=== PATIENT | female | born 1975 | race Two or more races ===

== ENCOUNTER 2018-07-07 07:58 | Emergency (ER) | payer MEDICARE, MEDICAID ==
[~2018-07-07] VITALS: Ht 165.1 cm; Wt 73.9 kg
[~2018-07-07 07:58] MED LIST: ASPI-845 PO; CYCL-1 PO; ESCI20TA38 PO; MULT1TAB74 PO; ONDA4TAB12 PO; PANT40TA4 PO; SIMV20TA5 PO; VALA500T37 PO; VARE1TAB22 PO
[2018-07-07 08:57] LABS: PARTIAL THROMBOPLASTIN TIME 27 SECONDS (22-32); PROTHROMBIN TIME 9.9 SECONDS (9.0-12.0)
[2018-07-07 09:01] LABS: HEMOGLOBIN 14.2 g/dl (12.0-16.0); RED BLOOD COUNT 4.19 X10'6 (4.20-5.60); WHITE BLOOD COUNT 4.9 X10'3 (4.5-11.0)
[2018-07-07 09:02] LABS: HEMATOCRIT 41.1 % (35.0-45.0); MEAN CORPUSCULAR HGB CONC 34.6 % (33.0-36.5); MEAN CORPUSCULAR VOLUME 98.2 FL (78-98); NEUTROPHILS % (AUTO) 62.2 % (42-75); PLATELET COUNT 273 X10'3 (140-440); RED CELL DISTRIBUTION WIDTH 12.9 % (11.5-14.5)
[2018-07-07 09:03] LABS: ALANINE AMINOTRANSFERASE 25 U/L (12-78); ALBUMIN 3.6 G/DL (3.4-5.0); ALKALINE PHOSPHATASE 82 IU/L (46-116); ANION GAP 10 (8-16); ASPARTATE AMINO TRANSFERASE 20 U/L (10-37); BASOPHILS % (AUTO) 0.9 % (0-1); BILIRUBIN,TOTAL 0.4 MG/DL (0.1-1.0); BLOOD UREA NITROGEN 10 MG/DL (7-18); BUN/CREATININE RATIO 18.2 (6.6-38.0); CALCIUM 8.4 MG/DL (8.5-10.1); CHLORIDE 103 MMOL/L (99-107); CREATININE 0.55 MG/DL (0.40-0.90); EOSINOPHILS # (AUTO) 0.2 X10'3 (0-0.9); EOSINOPHILS % (AUTO) 3.1 % (0-6); GLUCOSE 99 MG/DL (70-104); LYMPHOCYTES # (AUTO) 1.4 X10'3 (1.1-4.8); LYMPHOCYTES % (AUTO) 27.8 % (21-51); MONOCYTES # (AUTO) 0.3 X10'3 (0-0.9); SODIUM 139 MMOL/L (135-145); TOTAL CARBON DIOXIDE 25.9 MMOL/L (24-32); TOTAL PROTEIN 7.2 G/DL (6.4-8.2); eGFR > 90 ML/MIN
[2018-07-07] MEDS ORDERED: HYDROcodone/acetaminophen 10/325mg tab PO ONE (09:30)
[2018-07-07 09:44] VITALS: BP 126/69
== END 2018-07-07 09:47 | disposition home or self-care (01) ==
LOC: ER 07:58
DX: R07.9 Chest pain, unspecified (principal); I10 Essential (primary) hypertension; E78.00 Pure hypercholesterolemia, unspecified; Z86.73 Personal history of transient ischemic attack (TIA), and cerebral infarction without residual deficits; J45.909 Unspecified asthma, uncomplicated; F17.200 Nicotine dependence, unspecified, uncomplicated; Z91.040 Latex allergy status; Z88.2 Allergy status to sulfonamides; Z88.5 Allergy status to narcotic agent; Z88.8 Allergy status to other drugs, medicaments and biological substances; Z79.82 Long term (current) use of aspirin; Z79.899 Other long term (current) drug therapy
CPT/HCPCS: 36415; 71045; 80053; 84484; 85025; 85610; 85730; 93005; 99285

== ENCOUNTER 2018-09-29 05:02 | Emergency (ER) | payer MEDICARE, MEDICAID ==
[~2018-09-29] VITALS: Ht 165.1 cm; Wt 71.4 kg
[2018-09-29 05:05] VITALS: BP 128/91
[2018-09-29] MEDS ORDERED: HYDROcodone/acetaminophen 5mg/325mg tablet PO ONE (05:45)
[2018-09-29] MEDS ORDERED: naproxen 500mg tablet PO ONE (05:45)
== END 2018-09-29 06:12 | disposition home or self-care (01) ==
LOC: ER 05:03
DX: S93.491A Sprain of other ligament of right ankle, initial encounter (principal); E78.00 Pure hypercholesterolemia, unspecified; I10 Essential (primary) hypertension; J45.909 Unspecified asthma, uncomplicated; K21.9 Gastro-esophageal reflux disease without esophagitis; Z98.890 Other specified postprocedural states; Z86.73 Personal history of transient ischemic attack (TIA), and cerebral infarction without residual deficits; Z91.040 Latex allergy status; Z88.2 Allergy status to sulfonamides; Z88.5 Allergy status to narcotic agent; Z79.82 Long term (current) use of aspirin; Z79.899 Other long term (current) drug therapy; X50.1XXA Overexertion from prolonged static or awkward postures, initial encounter; Y93.89 Activity, other specified; Y92.89 Other specified places as the place of occurrence of the external cause; Y99.9 Unspecified external cause status
CPT/HCPCS: 29515; 73610; 99283

== ENCOUNTER 2019-06-24 15:43 | Emergency (ER) | payer MEDICARE, MEDICAID ==
[~2019-06-24] VITALS: Ht 165.1 cm; Wt 70.0 kg
[2019-06-24 16:08] VITALS: BP 121/88
== END 2019-06-24 16:49 | disposition home or self-care (01) ==
LOC: ER 15:43
DX: S63.630A Sprain of interphalangeal joint of right index finger, initial encounter (principal); E78.00 Pure hypercholesterolemia, unspecified; I10 Essential (primary) hypertension; J45.909 Unspecified asthma, uncomplicated; K21.9 Gastro-esophageal reflux disease without esophagitis; Z86.73 Personal history of transient ischemic attack (TIA), and cerebral infarction without residual deficits; Z98.890 Other specified postprocedural states; Z91.040 Latex allergy status; Z88.2 Allergy status to sulfonamides; Z88.5 Allergy status to narcotic agent; Z79.82 Long term (current) use of aspirin; Z79.899 Other long term (current) drug therapy; W22.8XXA Striking against or struck by other objects, initial encounter; Y93.89 Activity, other specified; Y92.89 Other specified places as the place of occurrence of the external cause; Y99.9 Unspecified external cause status
CPT/HCPCS: 73140; 99283

== ENCOUNTER 2019-09-24 13:42 | Emergency (ER) | payer MEDICARE, MEDICAID ==
[~2019-09-24] VITALS: Ht 165.1 cm; Wt 70.0 kg
[~2019-09-24 13:42] MED LIST changes: +SIMV-42 PO; -SIMV20TA5 PO
[2019-09-24] MEDS ORDERED: ketorolac tromethamine 15mg/ml inj. IM ONE (14:00)
[2019-09-24] MEDS ORDERED: orphenadrine citrate 60mg/2ml inj. IM ONE (14:00)
--- NOTE | 2019-09-24 14:06 | NUR ---
patient in fast track room 3.
[2019-09-24 14:44] VITALS: BP 137/90
[2019-09-24] MEDS ORDERED: IBUP-1985 PO (15:07)
[2019-09-24] MEDS ORDERED: METH-360 PO ×2 (15:07→16:51)
== END 2019-09-24 15:31 | disposition home or self-care (01) ==
LOC: ER 13:44
DX: S16.1XXA Strain of muscle, fascia and tendon at neck level, initial encounter (principal); E78.00 Pure hypercholesterolemia, unspecified; I10 Essential (primary) hypertension; J45.909 Unspecified asthma, uncomplicated; K21.9 Gastro-esophageal reflux disease without esophagitis; Z86.73 Personal history of transient ischemic attack (TIA), and cerebral infarction without residual deficits; Z98.890 Other specified postprocedural states; Z91.040 Latex allergy status; Z88.2 Allergy status to sulfonamides; Z88.5 Allergy status to narcotic agent; Z79.82 Long term (current) use of aspirin; Z79.899 Other long term (current) drug therapy; V49.88XA Car occupant (driver) (passenger) injured in other specified transport accidents, initial encounter; Y93.89 Activity, other specified; Y92.413 State road as the place of occurrence of the external cause; Y99.9 Unspecified external cause status
CPT/HCPCS: 72125; 72128; 96372; 99284; J1885; J2360

== ENCOUNTER 2019-10-25 06:06 | Emergency (ER) | payer MEDICARE, MEDICAID ==
[~2019-10-25] VITALS: Ht 165.1 cm; Wt 69.0 kg
[~2019-10-25 06:06] MED LIST changes: -ESCI20TA38 PO; +ESCI20TA45 PO; +IBUP-1985 PO; +METH-360 PO
[2019-10-25] MEDS ORDERED: oxymetazoline 15 ML nasal spray NS ONE (06:55)
[2019-10-25] MEDS ORDERED: ipratropium/albuterol 3ml nebule NEB ONE (06:55)
[2019-10-25] MEDS ORDERED: LIDOcaine 40mg/ml topical solution IH ONE (06:55)
[2019-10-25 08:14] VITALS: BP 126/67
[2019-10-25] MEDS ORDERED: FLUT1DIS INH (08:50)
[2019-10-25] MEDS ORDERED: ALBU6.7H9 INH (08:51)
== END 2019-10-25 09:19 | disposition home or self-care (01) ==
LOC: ER 06:06
DX: J20.9 Acute bronchitis, unspecified (principal); E78.00 Pure hypercholesterolemia, unspecified; I10 Essential (primary) hypertension; J45.909 Unspecified asthma, uncomplicated; K21.9 Gastro-esophageal reflux disease without esophagitis; F10.99 Alcohol use, unspecified with unspecified alcohol-induced disorder; F17.210 Nicotine dependence, cigarettes, uncomplicated; Z86.73 Personal history of transient ischemic attack (TIA), and cerebral infarction without residual deficits; Z98.890 Other specified postprocedural states; Z91.040 Latex allergy status; Z88.2 Allergy status to sulfonamides; Z88.5 Allergy status to narcotic agent; Z88.8 Allergy status to other drugs, medicaments and biological substances; Z79.82 Long term (current) use of aspirin; Z79.899 Other long term (current) drug therapy; Y90.9 Presence of alcohol in blood, level not specified
CPT/HCPCS: 71045; 87502; 87503; 94640; 99284; 99406; J2001; 94760

== ENCOUNTER 2019-10-30 08:03 | Emergency (ER) | payer MEDICARE, MEDICAID ==
[~2019-10-30] VITALS: Ht 165.1 cm; Wt 68.2 kg
[~2019-10-30 08:03] MED LIST changes: +ALBU6.7H9 INH; +FLUT1DIS INH
[2019-10-30] MEDS ORDERED: AMOX-422 PO (08:45)
[2019-10-30 08:52] VITALS: BP 126/98
== END 2019-10-30 08:54 | disposition home or self-care (01) ==
LOC: ER 08:04
DX: J32.0 Chronic maxillary sinusitis (principal); R09.82 Postnasal drip; E78.00 Pure hypercholesterolemia, unspecified; I10 Essential (primary) hypertension; J45.909 Unspecified asthma, uncomplicated; K21.9 Gastro-esophageal reflux disease without esophagitis; F17.200 Nicotine dependence, unspecified, uncomplicated; Z86.73 Personal history of transient ischemic attack (TIA), and cerebral infarction without residual deficits; Z98.890 Other specified postprocedural states; Z91.040 Latex allergy status; Z88.2 Allergy status to sulfonamides; Z88.5 Allergy status to narcotic agent; Z79.82 Long term (current) use of aspirin; Z79.899 Other long term (current) drug therapy
CPT/HCPCS: 99283

== ENCOUNTER 2020-01-29 18:40 | Emergency (ER) | payer MEDICARE, MEDICAID ==
[~2020-01-29] VITALS: Ht 165.1 cm; Wt 68.2 kg
[~2020-01-29 18:40] MED LIST changes: -VALA500T37 PO; +VALA500T41 PO
[2020-01-29] MEDS ORDERED: azithromycin 250mg tablet PO ONE (20:00)
[2020-01-29] MEDS ORDERED: CefTRIAXone 250MG IM Kit w/LIDOcaine IM ONE (20:00)
[2020-01-29 20:06] LABS: CLARITY,URINE CLEAR (Clear); COLOR,URINE YELLOW (Yellow); GLUCOSE, URINE NEGATIVE (Neg); KETONES,URINE NEGATIVE (Neg); LEUKOCYTE ESTERASE ,URINE NEGATIVE (Neg); NITRITES, URINE NEGATIVE (Neg); OCCULT BLOOD,URINE NEGATIVE (Neg); PROTEIN,URINE NEGATIVE (Neg); UA COLLECTION TYPE CLN CATCH MIDSTREAM; UROBILINOGEN,URINE 0.2 E.U/dL (0.2-1.0)
[2020-01-29 20:18] VITALS: BP 138/91
[2020-01-29 20:19] LABS: URINE HCG NEGATIVE (NEG)
== END 2020-01-29 20:20 | disposition home or self-care (01) ==
LOC: ER 18:42
DX: Z11.3 Encounter for screening for infections with a predominantly sexual mode of transmission (principal); R30.9 Painful micturition, unspecified; F41.9 Anxiety disorder, unspecified; E78.00 Pure hypercholesterolemia, unspecified; I10 Essential (primary) hypertension; J45.909 Unspecified asthma, uncomplicated; K21.9 Gastro-esophageal reflux disease without esophagitis; Z86.73 Personal history of transient ischemic attack (TIA), and cerebral infarction without residual deficits; Z98.890 Other specified postprocedural states; Z72.89 Other problems related to lifestyle
CPT/HCPCS: 36415; 81003; 81025; 87491; 87591; 96372; 99283; J0696

== ENCOUNTER 2021-09-01 09:13 | Emergency (ER) | payer MEDICARE, MEDICAID ==
[~2021-09-01] VITALS: Ht 165.1 cm; Wt 72.7 kg
[~2021-09-01 09:13] MED LIST changes: +ESCI20TA39 PO; -ESCI20TA45 PO; +MULT-620 PO; -MULT1TAB74 PO; -PANT40TA4 PO; +PANT40TA54 PO
[2021-09-01 09:17] VITALS: BP 139/94
[2021-09-01] MEDS ORDERED: AZIT250T2 PO (10:19)
== END 2021-09-01 10:48 | disposition home or self-care (01) ==
LOC: ER 09:14
DX: J20.9 Acute bronchitis, unspecified (principal); R06.02 Shortness of breath; J02.9 Acute pharyngitis, unspecified; R05.9 Cough, unspecified; R09.89 Other specified symptoms and signs involving the circulatory and respiratory systems; E78.00 Pure hypercholesterolemia, unspecified; I10 Essential (primary) hypertension; J45.909 Unspecified asthma, uncomplicated; K21.9 Gastro-esophageal reflux disease without esophagitis; Z86.73 Personal history of transient ischemic attack (TIA), and cerebral infarction without residual deficits; Z72.89 Other problems related to lifestyle; Z98.890 Other specified postprocedural states; Z88.2 Allergy status to sulfonamides; Z91.040 Latex allergy status; Z88.5 Allergy status to narcotic agent; Z88.8 Allergy status to other drugs, medicaments and biological substances; Z79.82 Long term (current) use of aspirin; Z79.2 Long term (current) use of antibiotics; Z79.899 Other long term (current) drug therapy
CPT/HCPCS: 71045; 99283

== ENCOUNTER 2021-12-15 11:45 | Emergency (ER) | payer MEDICARE, MEDICAID ==
[~2021-12-15] VITALS: Ht 165.1 cm; Wt 72.7 kg
[2021-12-15 11:51] VITALS: BP 154/97
[2021-12-15] MEDS ORDERED: HYDROcodone/acetaminophen 10/325mg tab PO ONE (12:15)
[2021-12-15] MEDS ORDERED: ibuprofen 200mg tablet PO ONE (12:15)
== END 2021-12-15 13:44 | disposition home or self-care (01) ==
LOC: ER 11:46
DX: M25.532 Pain in left wrist (principal); R22.32 Localized swelling, mass and lump, left upper limb; E78.00 Pure hypercholesterolemia, unspecified; I10 Essential (primary) hypertension; J45.909 Unspecified asthma, uncomplicated; K21.9 Gastro-esophageal reflux disease without esophagitis; F17.200 Nicotine dependence, unspecified, uncomplicated; Z86.79 Personal history of other diseases of the circulatory system; Z72.89 Other problems related to lifestyle; Z88.2 Allergy status to sulfonamides; Z88.5 Allergy status to narcotic agent; Z91.040 Latex allergy status; Z79.82 Long term (current) use of aspirin; Z79.899 Other long term (current) drug therapy; Z79.2 Long term (current) use of antibiotics
CPT/HCPCS: 29125; 73080; 73110; 99284

== ENCOUNTER 2022-09-06 06:11 | Day surgery (SDC) | payer MEDICARE, MEDICAID ==
[2022-08-27 13:06] LABS: BASOPHILS # (AUTO) 0.1 X10'3 (0-0.2); BASOPHILS % (AUTO) 0.7 % (0-1); EOSINOPHILS # (AUTO) 0.1 X10'3 (0-0.9); EOSINOPHILS % (AUTO) 2.1 % (0-6); LYMPHOCYTES # (AUTO) 2.4 X10'3 (1.1-4.8); LYMPHOCYTES % (AUTO) 33.5 % (21-51); MEAN CORPUSCULAR HEMOGLOBIN 33.1 PG (27.0-31.0); MEAN CORPUSCULAR HGB CONC 34.2 g/dL (33.0-36.5); MEAN CORPUSCULAR VOLUME 96.7 FL (78-98); MEAN PLATELET VOLUME 7.1 FL (7.4-10.4); MONOCYTES # (AUTO) 0.5 X10'3 (0-0.9); MONOCYTES % (AUTO) 6.5 % (2-12); NEUTROPHILS # (AUTO) 4.1 X10'3 (1.8-7.7); NEUTROPHILS % (AUTO) 57.2 % (42-75); PRE OP HEMATOCRIT 39.1 % (35.0-45.0); PRE OP HEMOGLOBIN 13.4 g/dL (12.0-16.0); PRE OP PLATELET COUNT 252 X10'3 (140-440); RED BLOOD COUNT 4.04 X10'6 (4.20-5.60); RED CELL DISTRIBUTION WIDTH 13.5 % (11.5-14.5)
[2022-08-27 13:20] LABS: ALBUMIN 3.8 G/DL (3.4-5.0); ALBUMIN/GLOBULIN RATIO 1.1 (1.1-1.5); ALKALINE PHOSPHATASE 88 IU/L (46-116); BLOOD UREA NITROGEN 9 MG/DL (7-18); BUN/CREATININE RATIO 15.8 (6.6-38.0); CALCIUM 8.9 MG/DL (8.5-10.1); CHLORIDE 104 MMOL/L (99-107); CREATININE 0.57 MG/DL (0.40-0.90); PRE OP ALT 30 U/L (30-65); PRE OP ANION GAP 9 (8-16); PRE OP AST 24 U/L (10-37); PRE OP BILIRUB, TOTAL 0.5 MG/DL (0.0-1.0); PRE OP GLUCOSE 94 MG/DL (70-104); PRE OP POTASSIUM 3.6 MMOL/L (3.4-5.1); PRE OP SODIUM 139 MMOL/L (135-145); TOTAL CARBON DIOXIDE 25.9 MMOL/L (24-32); TOTAL PROTEIN 7.2 G/DL (6.4-8.2); eGFR > 90 ML/MIN
[~2022-09-06] VITALS: Ht 165.1 cm; Wt 84.0 kg
[2022-09-06 06:00] VITALS: BP 110/70
[~2022-09-06 06:11] MED LIST changes: -ALBU6.7H9 INH; -ASPI-845 PO; +ATOR10TA10 PO; -CYCL-1 PO; -ESCI20TA39 PO; +FERR325T29 PO; -FLUT1DIS INH; -IBUP-1985 PO; -METH-360 PO; -MULT-620 PO; -ONDA4TAB12 PO; -SIMV-42 PO; -VARE1TAB22 PO; +VENL75CA61 PO; +VITAMIN C; +ceFAZolin inj. 2,000 MG in dextrose 5%-water 100 ML IV ONE; +famotidine 20mg tablet PO ONE; +ringers solution, lacted 1,000 ML IV SCH
[2022-09-06] MEDS ORDERED: midazolam 1 mg/ML 2ml injection ONE ×2 (08:16→08:50)
[2022-09-06] MEDS ORDERED: fentaNYL/PF 50MCG/1 ML 2ML syringe ONE (08:16)
[2022-09-06] MEDS ORDERED: BUPIVAcaine 0.5% inj/PF 30 ML ONE (08:42)
[2022-09-06] MEDS ORDERED: BUPIVAcaine 0.5% inj/PF 30 ml vial IJ ONE (09:01)
[2022-09-06] MEDS ORDERED: propofol inj 20 ML IV ONE (09:05)
[2022-09-06 09:28] VITALS: BP 127/80
--- NOTE | 2022-09-06 09:28 | NUR ---
Received from OR via [facility] , accompanied by Anesthesiologist JIAN and report given by Anesthesiolgist. PATIENT WITH 20G PIV IN RIGHT UE RUNNING LR AT 100. VSS. PATIENT WITH SPLINT TO LEFT UE THUMB SPICA. CDI. BRANDON + CSM AND ARE PWD, NO DRAINAGE PRESENT. Addendum: 09/06/22 at 0943 by Skinny Wang RN, RN Amended: Links added.
[2022-09-06] MEDS ORDERED: meperidine/PF 25mg/ml syringe IV PRN ×2 (09:35)
[2022-09-06] MEDS ORDERED: ringers solution, lacted 1,000 ML IV SCH (09:35)
[2022-09-06] MEDS ORDERED: ondansetron/PF 4mg/2ml inj IV PRN (09:35)
[2022-09-06 09:40] VITALS: BP 132/88
[2022-09-06 09:50] VITALS: BP 133/93
--- NOTE | 2022-09-06 10:00 | NUR ---
ALL DISCHARGE CRITERIA HAS BEEN MET. VSS, PAIN AT A TOLERABLE LEVEL, VOIDED AND ABLE TO SAFELY AMBULATE AND TRANSFER SELF. IV TAKEN OUT WITHOUT ANY COMPLICATIONS. ALL DISCHARGE INSTRUCTIONS COVERED WITH PATIENT AND ALL QUESTIONS ANSWERED. PATIENT TAKEN OUT VIA WHEELCHAIR TO PERSONAL VEHICLE WHERE FAMILY/FRIEND DROVE PATIENT HOME. Addendum: 09/06/22 at 1010 by Skinny Wang RN, RN Amended: Links added.
--- NOTE | 2022-09-06 10:08 | NUR ---
ALL DISCHARGE CRITERIA HAS BEEN MET. VSS, PAIN AT A TOLERABLE LEVEL, VOIDED AND ABLE TO SAFELY AMBULATE AND TRANSFER SELF. IV TAKEN OUT WITHOUT ANY COMPLICATIONS. ALL DISCHARGE INSTRUCTIONS COVERED WITH PATIENT AND ALL QUESTIONS ANSWERED. PATIENT TAKEN OUT VIA WHEELCHAIR TO PERSONAL VEHICLE WHERE FAMILY/FRIEND DROVE PATIENT HOME. Addendum: 09/06/22 at 1012 by Skinny Ochoa - RADHA GARCIA Amended: Links added.
== END 2022-09-06 10:08 | disposition home or self-care (01) ==
LOC: PAS 06:11
PROVIDERS: ATTEND Orthopaedic Surgery Hand Surgery
DX: M18.12 Unilateral primary osteoarthritis of first carpometacarpal joint, left hand (principal); M87.2 Osteonecrosis due to previous trauma; Z88.5 Allergy status to narcotic agent; F17.210 Nicotine dependence, cigarettes, uncomplicated; K21.9 Gastro-esophageal reflux disease without esophagitis; Z88.2 Allergy status to sulfonamides; Z88.8 Allergy status to other drugs, medicaments and biological substances; Z91.040 Latex allergy status; Z79.899 Other long term (current) drug therapy; Z98.890 Other specified postprocedural states; Z86.73 Personal history of transient ischemic attack (TIA), and cerebral infarction without residual deficits; Z88.6 Allergy status to analgesic agent
CPT/HCPCS: 25312; 25447; 36415; 80053; 82948; 85025; 93005; J0690; J2250; J2704; J3010; J7030; J7060; J7120; S0020; Z7506; Z7512; A4215; A4618; A7000

== ENCOUNTER 2023-12-10 06:33 | Emergency (ER) | payer MEDICARE, MEDICAID ==
[~2023-12-10] VITALS: Ht 165.1 cm; Wt 69.8 kg
[~2023-12-10 06:33] MED LIST changes: -ceFAZolin inj. 2,000 MG in dextrose 5%-water 100 ML IV ONE; -famotidine 20mg tablet PO ONE; -ringers solution, lacted 1,000 ML IV SCH
[2023-12-10] MEDS ORDERED: AMOX-580 PO (06:55)
[2023-12-10 07:04] VITALS: BP 128/86; PULSE 71; RESP 16; TEMP 97.8; O2SAT 98
== END 2023-12-10 07:20 | disposition home or self-care (01) ==
LOC: ER 06:34
DX: J20.9 Acute bronchitis, unspecified (principal); E78.00 Pure hypercholesterolemia, unspecified; I10 Essential (primary) hypertension; J45.909 Unspecified asthma, uncomplicated; K21.9 Gastro-esophageal reflux disease without esophagitis; Z91.040 Latex allergy status; Z88.2 Allergy status to sulfonamides; Z88.5 Allergy status to narcotic agent; Z79.2 Long term (current) use of antibiotics; Z79.899 Other long term (current) drug therapy; Z98.890 Other specified postprocedural states
CPT/HCPCS: 99283

== ENCOUNTER 2023-12-27 07:17 | Emergency (ER) | payer MEDICARE, MEDICAID ==
[~2023-12-27] VITALS: Ht 165.1 cm; Wt 68.7 kg
[~2023-12-27 07:17] MED LIST changes: +AMOX-580 PO
[2023-12-27] MEDS: diphenhydrAMINE 50 mg/ml inj IV ONE (09:19)
[2023-12-27] MEDS: HYDROmorphone 1 mg/ml syringe IV ONE (09:19)
[2023-12-27] MEDS: normal saline 1000ML IV soln IVB ONE (09:25)
[2023-12-27 10:31] LABS: BILIRUBIN,URINE NEGATIVE (Neg); CLARITY,URINE CLEAR (Clear); COLOR,URINE YELLOW (Yellow); GLUCOSE, URINE NEGATIVE (Neg); KETONES,URINE NEGATIVE (Neg); LEUKOCYTE ESTERASE ,URINE NEGATIVE (Neg); NITRITES, URINE NEGATIVE (Neg); OCCULT BLOOD,URINE NEGATIVE (Neg); PROTEIN,URINE NEGATIVE (Neg); UROBILINOGEN,URINE 0.2 E.U/dL (0.2-1.0)
[2023-12-27 10:37] LABS: UA COLLECTION TYPE NON-SPECIFIED
[2023-12-27 10:45] LABS: URINE AMPHETAMINE SCREEN NEGATIVE (Neg); URINE BARBITUATE SCREEN NEGATIVE (Neg); URINE BENZODIAZEPINES SCREEN NEGATIVE (Neg); URINE CANNABINOID SCREEN NEGATIVE (Neg); URINE COCAINE SCREEN NEGATIVE (Neg); URINE METHADONE SCREEN NEGATIVE (Neg); URINE OPIATE SCREEN NEGATIVE (Neg); URINE PHENCYCLIDINE SCREEN NEGATIVE (Neg)
[2023-12-27 11:04] LABS: BASOPHILS # (AUTO) 0.1 X10'3 (0-0.2); BASOPHILS % (AUTO) 0.8 % (0-1); EOSINOPHILS # (AUTO) 0.1 X10'3 (0-0.9); EOSINOPHILS % (AUTO) 1.8 % (0-6); HEMATOCRIT 36.4 % (35.0-45.0); HEMOGLOBIN 12.6 g/dl (12.0-16.0); LYMPHOCYTES # (AUTO) 2.1 X10'3 (1.1-4.8); LYMPHOCYTES % (AUTO) 31.8 % (21-51); MEAN CORPUSCULAR HEMOGLOBIN 33.9 PG (27.0-31.0); MEAN CORPUSCULAR HGB CONC 34.5 g/dL (33.0-36.5); MEAN CORPUSCULAR VOLUME 98.4 FL (78-98); MEAN PLATELET VOLUME 7.2 FL (7.4-10.4); MONOCYTES # (AUTO) 0.4 X10'3 (0-0.9); MONOCYTES % (AUTO) 6.4 % (2-12); NEUTROPHILS # (AUTO) 3.9 X10'3 (1.8-7.7); NEUTROPHILS % (AUTO) 59.2 % (42-75); PLATELET COUNT 204 X10'3 (140-440); RED CELL DISTRIBUTION WIDTH 13.5 % (11.5-14.5); WHITE BLOOD COUNT 6.6 X10'3 (4.5-11.0)
[2023-12-27 11:15] LABS: ALANINE AMINOTRANSFERASE 23 U/L (12-78); ALBUMIN 2.9 G/DL (3.4-5.0); ALBUMIN/GLOBULIN RATIO 0.9 (1.1-1.5); ALKALINE PHOSPHATASE 70 IU/L (46-116); ANION GAP 5 (8-16); ASPARTATE AMINO TRANSFERASE 17 U/L (10-37); BILIRUBIN,TOTAL 0.4 MG/DL (0.1-1.0); BLOOD UREA NITROGEN 11 MG/DL (7-18); BUN/CREATININE RATIO 16.9 (10.0-20.0); CHLORIDE 109 MMOL/L (99-107); CREATININE 0.65 MG/DL (0.40-0.90); GLUCOSE 95 MG/DL (70-104); POTASSIUM 3.7 MMOL/L (3.5-5.1); SODIUM 140 MMOL/L (135-145); TOTAL CARBON DIOXIDE 25.7 MMOL/L (24-32); TOTAL PROTEIN 6.1 G/DL (6.4-8.2); eCRCL 93 ML/MIN; eGFR > 90 ML/MIN
[2023-12-27 11:58] VITALS: TEMP 97.5
[2023-12-27] MEDS ORDERED: ketorolac trometh. 30mg/ml inj. IV ONE (13:40)
[2023-12-27 13:41] VITALS: BP 112/75; PULSE 58; O2SAT 100
[2023-12-27] MEDS ORDERED: NAPR-56 PO (13:54)
[2023-12-27] MEDS: naproxen 500mg tablet PO ONE (14:06)
[2023-12-27 14:07] VITALS: RESP 16
[2023-12-27] MEDS: ketorolac tromethamine 15mg/ml inj. IV ONE (14:07)
== END 2023-12-27 14:19 | disposition home or self-care (01) ==
LOC: ER 07:18
DX: M43.10 Spondylolisthesis, site unspecified (principal); I10 Essential (primary) hypertension; E78.00 Pure hypercholesterolemia, unspecified; K21.9 Gastro-esophageal reflux disease without esophagitis; J45.909 Unspecified asthma, uncomplicated; Z86.73 Personal history of transient ischemic attack (TIA), and cerebral infarction without residual deficits; G89.29 Other chronic pain; F17.200 Nicotine dependence, unspecified, uncomplicated; Z91.040 Latex allergy status; Z88.8 Allergy status to other drugs, medicaments and biological substances; Z88.2 Allergy status to sulfonamides
CPT/HCPCS: 36415; 72148; 80053; 80305; 81003; 85025; 96361; 96374; 96375; 99285; J1170; J1200; J1885; J7030

== ENCOUNTER 2024-06-24 06:17 | Emergency (ER) | payer MEDICARE, MEDICAID ==
[~2024-06-24] VITALS: Ht 165.1 cm; Wt 71.4 kg
[~2024-06-24 06:17] MED LIST changes: -AMOX-580 PO
[2024-06-24 06:18] VITALS: TEMP 98.1
[2024-06-24 07:12] LABS: EOSINOPHILS # (AUTO) 0.2 X10'3 (0-0.9); EOSINOPHILS % (AUTO) 4.5 % (0-6); HEMATOCRIT 40.1 % (35.0-45.0); HEMOGLOBIN 13.8 g/dl (12.0-16.0); LYMPHOCYTES # (AUTO) 1.6 X10'3 (1.1-4.8); LYMPHOCYTES % (AUTO) 34.9 % (21-51); MEAN CORPUSCULAR HEMOGLOBIN 33.5 PG (27.0-31.0); MEAN CORPUSCULAR HGB CONC 34.5 g/dL (33.0-36.5); MEAN PLATELET VOLUME 7.8 FL (7.4-10.4); MONOCYTES # (AUTO) 0.3 X10'3 (0-0.9); MONOCYTES % (AUTO) 7.7 % (2-12); NEUTROPHILS # (AUTO) 2.3 X10'3 (1.8-7.7); NEUTROPHILS % (AUTO) 51.9 % (42-75); PLATELET COUNT 228 X10'3 (140-440); RED BLOOD COUNT 4.13 X10'6 (4.20-5.60); RED CELL DISTRIBUTION WIDTH 13.5 % (11.5-14.5); WHITE BLOOD COUNT 4.5 X10'3 (4.5-11.0)
[2024-06-24 07:27] LABS: ALANINE AMINOTRANSFERASE 22 U/L (12-78); ALBUMIN 3.4 G/DL (3.4-5.0); ALKALINE PHOSPHATASE 50 IU/L (46-116); ANION GAP 10 (8-16); ASPARTATE AMINO TRANSFERASE 17 U/L (10-37); BILIRUBIN,TOTAL 0.5 MG/DL (0.1-1.0); BLOOD UREA NITROGEN 8 MG/DL (7-18); BUN/CREATININE RATIO 13.8 (10.0-20.0); CALCIUM 8.8 MG/DL (8.5-10.1); CHLORIDE 107 MMOL/L (99-107); CREATININE 0.58 MG/DL (0.40-0.90); GLUCOSE 96 MG/DL (70-104); POTASSIUM 4.1 MMOL/L (3.5-5.1); SODIUM 139 MMOL/L (135-145); TOTAL CARBON DIOXIDE 21.8 MMOL/L (24-32); TOTAL PROTEIN 6.8 G/DL (6.4-8.2); eCRCL 103 ML/MIN; eGFR > 90 ML/MIN
[2024-06-24 07:38] LABS: PRO BRAIN NATRIURETIC PEPTIDE 65 PG/ML (0-125)
[2024-06-24] MEDS ORDERED: OMEP40CA21 PO (07:54)
[2024-06-24 08:04] VITALS: BP 118/81; PULSE 70; RESP 16; O2SAT 100
== END 2024-06-24 08:17 | disposition home or self-care (01) ==
LOC: ER 06:17
DX: R10.13 Epigastric pain (principal); E78.00 Pure hypercholesterolemia, unspecified; I10 Essential (primary) hypertension; J45.909 Unspecified asthma, uncomplicated; K21.9 Gastro-esophageal reflux disease without esophagitis; G89.29 Other chronic pain; M54.9 Dorsalgia, unspecified; F17.210 Nicotine dependence, cigarettes, uncomplicated; Z91.040 Latex allergy status; Z88.8 Allergy status to other drugs, medicaments and biological substances; Z91.018 Allergy to other foods; Z79.899 Other long term (current) drug therapy; Z79.2 Long term (current) use of antibiotics; Z86.73 Personal history of transient ischemic attack (TIA), and cerebral infarction without residual deficits; Z98.890 Other specified postprocedural states; Z72.89 Other problems related to lifestyle
CPT/HCPCS: 36415; 71045; 80053; 83880; 84484; 85025; 93005; 99285

== ENCOUNTER 2024-08-19 08:54 | Emergency (ER) | payer BC, MEDICAID ==
[~2024-08-19] VITALS: Ht 165.1 cm; Wt 66.3 kg
[2024-08-19 09:00] VITALS: TEMP 97.7
[2024-08-19 09:24] LABS: BILIRUBIN,URINE NEGATIVE (Neg); CLARITY,URINE CLOUDY (Clear); COLOR,URINE RED (Yellow); GLUCOSE, URINE NEGATIVE (Neg); KETONES,URINE NEGATIVE (Neg); LEUKOCYTE ESTERASE ,URINE TRACE (Neg); OCCULT BLOOD,URINE LARGE (Neg); PROTEIN,URINE 100 mg/dl (Neg); UROBILINOGEN,URINE 0.2 E.U/dL (0.2-1.0)
[2024-08-19 09:25] LABS: NITRITES, URINE NEGATIVE (Neg); UA COLLECTION TYPE VOIDED
[2024-08-19 09:32] LABS: BACTERIA,URINE FEW /HPF (Neg); MUCUS STRANDS FEW /LPF (Neg); RBC,URINE TNTC /HPF (0-2); SQUAMOUS EPITHELIAL CELL,UR FEW /LPF (FEW); TRANSITIONAL EPI CELLS,URINE FEW /HPF
[2024-08-19] MEDS ORDERED: NITR100C6 PO (09:46)
[2024-08-19 09:54] VITALS: BP 115/85; PULSE 82; RESP 16; O2SAT 100
== END 2024-08-19 09:56 | disposition home or self-care (01) ==
LOC: ER 08:54
DX: N39.0 Urinary tract infection, site not specified (principal); E78.00 Pure hypercholesterolemia, unspecified; I10 Essential (primary) hypertension; J45.909 Unspecified asthma, uncomplicated; K21.9 Gastro-esophageal reflux disease without esophagitis; G89.29 Other chronic pain; M54.9 Dorsalgia, unspecified; Z88.5 Allergy status to narcotic agent; Z88.2 Allergy status to sulfonamides; Z91.040 Latex allergy status; Z86.73 Personal history of transient ischemic attack (TIA), and cerebral infarction without residual deficits; Z98.890 Other specified postprocedural states; Z72.89 Other problems related to lifestyle; Z79.899 Other long term (current) drug therapy
CPT/HCPCS: 81001; 87077; 87088; 87186; 99283

== ENCOUNTER 2024-09-22 09:56 | Emergency (ER) | payer BC, MEDICAID ==
[~2024-09-22] VITALS: Ht 165.1 cm; Wt 68.8 kg
[~2024-09-22 09:56] MED LIST changes: +NITR100C6 PO
[2024-09-22 10:06] VITALS: BP 119/79; PULSE 80; TEMP 97.8; O2SAT 98
[2024-09-22] MEDS ORDERED: PROM118S5 PO (14:37)
[2024-09-22] MEDS ORDERED: PRED20TA PO (14:37)
[2024-09-22 14:45] VITALS: RESP 16
== END 2024-09-22 14:46 | disposition home or self-care (01) ==
LOC: ER 09:57
DX: B34.9 Viral infection, unspecified (principal); E78.00 Pure hypercholesterolemia, unspecified; I10 Essential (primary) hypertension; J45.909 Unspecified asthma, uncomplicated; K21.9 Gastro-esophageal reflux disease without esophagitis; G89.29 Other chronic pain; Z86.73 Personal history of transient ischemic attack (TIA), and cerebral infarction without residual deficits; Z88.2 Allergy status to sulfonamides; Z91.040 Latex allergy status; Z88.5 Allergy status to narcotic agent; Z88.8 Allergy status to other drugs, medicaments and biological substances; Z98.890 Other specified postprocedural states; Z20.822 Contact with and (suspected) exposure to COVID-19
CPT/HCPCS: 36415; 71045; 87502; 87503; 87811; 99284

== ENCOUNTER 2025-04-03 11:30 | Emergency (ER) | payer BC, MEDICAID ==
[~2025-04-03] VITALS: Ht 165.1 cm; Wt 61.4 kg
--- NOTE | 2025-04-03 11:44 | Physician Documentation ---
History of Present Illness ~ Stated Complaint: TOE PAIN Time Seen by MD: 11:43 Primary Medical Doctor: [facility] This 50-year-old female reports that she injured her left 5th toe yesterday by accidentally kicking something. She denies any other injuries or concerns. On exam, the toe was found to be slightly swollen with ecchymosis. Tetanus witin 5 years: Yes Medication Reconciliation Allergies: Coded Allergies: latex (Unverified Allergy, Intermediate, HIVES, 09/22/24) Sulfa (Sulfonamide Antibiotics) (Verified Allergy, Unknown, HIVES, ) morphine (Verified Allergy, Unknown, HIVES, 09/22/24) trazodone (Verified Allergy, Unknown, HIVES, 09/22/24) Scheduled Atorvastatin Calcium (Lipitor), 1 TAB PO DAILY, (Reported) Ferrous Sulfate (Ferrous Sulfate), 1 TAB PO DAILY, (Reported) Naproxen (Naproxen), 1 TAB PO Q12H Nitrofurantoin Monohyd/M-Cryst (Macrobid 100 mg Capsule), 1 CAP PO Q12H Pantoprazole Sodium (Pantoprazole Sodium), 1 TAB PO BILL, (Reported) Valacyclovir HCl (Valacyclovir), 1 TAB PO DAILY, (Reported) Venlafaxine Hcl (Venlafaxine Hcl Er), 1 CAP PO DAILY, (Reported) Miscellaneous Medications [Vitamin C], (Reported) Past Medical History Past Medical History: *CLAY ARTIST*, CVA/TIA/Stroke, High Cholesterol, Hypertension, Vascular Disease, Asthma, GERD, Chronic Back Pain Past Surgical History: brain surgery, Alcohol Use: Occasionally Drug Use: none Lives with: Family Lives In: Home Occupation: employed Review of Systems ROS As stated above in the HPI, otherwise all systems are reviewed and negative. Physical Exam Physical Exam General: Alert, no apparent distress. Neck: Full range of motion. Respiratory: Lungs clear, no respiratory distress. Chest: No accessory muscle use. Cardiovascular: Regular rate and rhythm, no murmurs. Gastrointestinal: Soft, nontender, nondistended. Bowels sounds present. Extremities: Normal range of motion, no deformity. Eccymosis left fifth toe. Neurologic: Oriented x4. Psychiatric: Normal mood and affect. Skin: Normal color, warm and dry. Progress Results/Orders Results/Orders Orders - KENNEDI WHITMORE NP Foot, Complete (3vw Min) (04/03/25 11:43) Ortho Orders (04/03/25 ) Completed Orders - KENNEDI WHITMORE NP Foot, Complete (3vw Min) (04/03/25 11:43) Vital Signs 04/03/25 04/03/25 11:37 12:59 Temp 97.8 97.8 Pulse 89 70 Resp 18 15 B/P (MAP) 155/101 145/99 Pulse Ox 97 97 EKG/XRAY/CT/US/VASC/MRI Bone/Soft Tissue X-Ray (Spine) : Additional Comment [place] [id number] DIAGNOSTIC RADIOLOGY Patient: GRACIELA GREEN Medical Record: [id number] [facility] : 1975, Age: 50 Sex: Female Location: ER Patient Status: [facility] ER Service Date/Time: 04/03/25/ 1143 Ordering Physician: KENNEDI WHITMORE NP Exam: FOOT, COMPLETE (3VW MIN) X-ray left foot Technique: AP lateral and oblique views REASON FOR EXAM: trauma, pain INDICATION: trauma, pain FINDINGS: Chip fracture off the base of proximal phalanx of the left 5th toe seen on the lateral view. IMPRESSION: 1. Chip fracture of the base of the proximal phalanx of the left 5th toe Electronically Signed by:FRANCISCO JAVIER COATES MD Date & Time: 04/03/25 1218 Dictated by: FRANCISCO JAVIER COATES MD Dictation date and time: 04/03/25 1200 Primary Care Provider: NO PRIMARY CARE PROVIDER cc: KENNEDI WHITMORE NP ~ Medical Decision Making Additional Comment Nondisplaced chip fracture per x-ray. Patient was placed in a hard-soled shoe. She is instructed to ice, elevate, use naproxen as needed for pain. She is to return if worse. Departure Time of Disposition: 12:24 Disposition: 01 HOME / SELF CARE / HOMELESS Impression: Primary Impression: Toe fracture, left Additional Impression: High blood pressure Condition: Stable Discharge Instructions: Hypertension, Adult, Toe Fracture, [id number] Additional Instructions: Hard-soled shoe. May benefit from "neeru taping" injured toe to adjacent toe. Ice, elevate, Naproxen. Followup with primary care both regarding the toe and your BP, which was high in the ER. Return if worse. Referrals: NO PRIMARY CARE PROVIDER (PCP) Prescriptions Naproxen (Naproxen) 500 Mg Tablet 1 TAB PO Q12H, #20 TAB Prov: KENNEDI WHITMORE NP 04/03/25 Education Educated: Patient Educated regarding: diagnosis, treatment, prognosis, need for follow up Signature Scribe Signature: no scribe Attestation: The note accurately reflects work and decisions made by me.Kennedi Wang NP 04/03/25 13:22 KENNEDI WHITMORE NP Apr 03, 2025 11:44
--- NOTE | 2025-04-03 12:21 | RADIOLOGY REPORT ---
X-ray left foot Technique: AP lateral and oblique views REASON FOR EXAM: trauma, pain INDICATION: trauma, pain FINDINGS: Chip fracture off the base of proximal phalanx of the left 5th toe seen on the lateral vie w. IMPRESSION: 1. Chip fracture of the base of the proximal phalanx of the left 5th toe
[2025-04-03] MEDS ORDERED: NAPR-56 PO (12:26)
[2025-04-03 12:59] VITALS: BP 145/99; PULSE 70; RESP 15; TEMP 97.8; O2SAT 97
== END 2025-04-03 13:05 | disposition home or self-care (01) ==
LOC: ER 11:31
DX: S92.512A Displaced fracture of proximal phalanx of left lesser toe(s), initial encounter for closed fracture (principal); I10 Essential (primary) hypertension; E78.00 Pure hypercholesterolemia, unspecified; K21.9 Gastro-esophageal reflux disease without esophagitis; J45.909 Unspecified asthma, uncomplicated; Z86.73 Personal history of transient ischemic attack (TIA), and cerebral infarction without residual deficits; Z88.2 Allergy status to sulfonamides; Z88.5 Allergy status to narcotic agent; Z91.040 Latex allergy status; Z79.899 Other long term (current) drug therapy; W22.8XXA Striking against or struck by other objects, initial encounter; Y93.89 Activity, other specified; Y92.89 Other specified places as the place of occurrence of the external cause; Y99.8 Other external cause status
CPT/HCPCS: 73630; 99283; L3260